=== PATIENT | male | born 1975 | race African-American/Black ===

== ENCOUNTER 2021-05-19 17:42 | Emergency (ER) | payer OTHER ==
[~2021-05-19] VITALS: Ht 175.3 cm; Wt 143.3 kg
[~2021-05-19 17:42] MED LIST: IBUPROFEN 600600 M1 PO; KEFLEX500 MG PO; NORCO 5-325 TA1 EACH PO; TRAMADOL 50 MG50 MG PO
[2021-05-19 17:54] VITALS: BP 145/73
[2021-05-19] MEDS ORDERED: MELOXICAM15 MG PO (23:17)
[2021-05-19] MEDS ORDERED: NORCO5 PO (23:17)
== END 2021-05-19 23:35 | disposition home or self-care (01) ==
LOC: ER 17:42
DX: S46.911A Strain of unspecified muscle, fascia and tendon at shoulder and upper arm level, right arm, initial encounter (principal); W10.9XXA Fall (on) (from) unspecified stairs and steps, initial encounter; Y93.89 Activity, other specified; Y92.89 Other specified places as the place of occurrence of the external cause; Y99.8 Other external cause status